=== PATIENT | male | born 1980 | race Caucasian/White ===

== ENCOUNTER 2022-10-19 07:31 | Inpatient (IN) | payer OTHER ==
[~2022-10-19] VITALS: Ht 162.6 cm; Wt 74.8 kg
[2022-10-19] MEDS ORDERED: BACITRACIN OINTMENT 30GM TUBE As Ordered ONE (07:57)
[2022-10-19] MEDS ORDERED: propofoL 200 MG/20 ML VIAL As Ordered ONE (08:02)
[2022-10-19] MEDS ORDERED: ONDANSETRON 4MG 2ML VIAL As Ordered ONE (08:02)
[2022-10-19] MEDS ORDERED: MIDAZOLAM INJ 2MG/2ML VIAL As Ordered ONE (08:02)
[2022-10-19] MEDS ORDERED: fentaNYL 100 MCG/2 ML INJECTION As Ordered ONE (08:02)
[2022-10-19] MEDS ORDERED: ceFAZolin 2 GM/D5W 50 ML IV BAG As Ordered ONE (08:15)
[2022-10-19] MEDS ORDERED: ceFAZolin SOD 2 GM in IV 1 EA IV ONE (08:20)
[2022-10-19] MEDS ORDERED: VANCOMYCIN 1000MG/20ML VIAL As Ordered ONE (08:57)
[2022-10-19] MEDS ORDERED: ACETAMINOPHEN 1000MG 100ML IV BAG As Ordered ONE (09:06)
[2022-10-19] MEDS ORDERED: KETOROLAC 60MG 2ML VIAL As Ordered ONE (09:33)
[2022-10-19] MEDS ORDERED: fentaNYL 100 MCG/2 ML INJECTION IV PRN (09:35)
[2022-10-19] MEDS ORDERED: LR 1,000 ML IV SCH (09:35)
[2022-10-19] MEDS ORDERED: ONDANSETRON 4MG 2ML VIAL IV PRN (09:35)
[2022-10-19] MEDS ORDERED: oxyCODONE 5MG TAB PO PRN (09:50)
[2022-10-19] MEDS ORDERED: MORPHINE 4 MG/ML 1ML VIAL IV PRN (09:50)
[2022-10-19] MEDS ORDERED: VANCOMYCIN HCL 1,000 MG, VIAL MATE ADAPTER 1 EACH in D5W 250 ML IV SCH (09:50)
[2022-10-19] MEDS ORDERED: ACETAMINOPHEN TAB 650MG DOSE (2X325MG) PO PRN (09:50)
[2022-10-19] MEDS: HYDROMORPHONE HCL 0.5 MG/ 0.5 ML SYRINGE IV PRN ×6 (09:56→10:47)
[2022-10-19] MEDS: oxyCODONE 5MG TAB PO PRN ×2 (10:04→10:46)
[2022-10-19 11:02] LABS: HEMATOCRIT 39.8 % (42.0-52.0); HEMOGLOBIN 13.4 g/dl (13.5-17.5); MEAN CORPUSCULAR HEMOGLOBIN 31.2 pg (27.0-33.0); MEAN CORPUSCULAR HGB CONC 33.7 g/dl (32.0-36.5); MEAN CORPUSCULAR VOLUME 92.8 fl (80.0-96.0); PLATELET COUNT, AUTOMATED 201 10^3/uL (150-450); RED BLOOD COUNT 4.29 10^6/uL (4.30-6.10); WHITE BLOOD COUNT 7.4 10^3/uL (4.0-10.0)
[2022-10-19 11:19] LABS: C REACTIVE PROTEIN QUANTITATIV < 0.40 MG/DL (<1.0)
[2022-10-19 11:20] LABS: BLOOD UREA NITROGEN 13 MG/DL (9-23); CALCIUM LEVEL 8.2 MG/DL (8.5-10.1); CARBON DIOXIDE LEVEL 29 MMOL/L (20-31); CHLORIDE LEVEL 108 MMOL/L (98-107); CREATININE FOR GFR 0.74 MG/DL (0.70-1.30); GLOMERULAR FILTRATION RATE > 60.0 (>60); GLUCOSE, FASTING 96 MG/DL (60-100); POTASSIUM SERUM 4.6 MMOL/L (3.5-5.1); SODIUM LEVEL 142 MMOL/L (136-145)
[2022-10-19] MEDS ORDERED: VANCOMYCIN HCL 750 MG, VIAL MATE ADAPTER 1 EACH in D5W 250 ML IV ONE ×2 (12:00→13:00)
[2022-10-19 12:37] VITALS: BP 113/63; TEMP 97.9; O2SAT 97
[2022-10-19 13:45] VITALS: BP 133/69; TEMP 97.7; O2SAT 96
[2022-10-19 14:45] VITALS: BP 136/70; TEMP 97.5; O2SAT 98
[2022-10-19 18:45] VITALS: BP 109/61; TEMP 98.1; O2SAT 98
[2022-10-19] MEDS: VANCOMYCIN HCL 750 MG, VIAL MATE ADAPTER 1 EACH in D5W 250 ML IV SCH (20:19)
[2022-10-19 22:08] VITALS: BP 125/60; TEMP 98.4; O2SAT 97
[2022-10-20 02:16] VITALS: BP 102/48; TEMP 98.6; O2SAT 93
[2022-10-20] MEDS: VANCOMYCIN HCL 750 MG, VIAL MATE ADAPTER 1 EACH in D5W 250 ML IV SCH ×3 (04:41→19:33)
[2022-10-20 06:34] LABS: BASO % 0.3 % (0.0-1.0); EOS # 0.1 10^3/uL (0.0-0.5); HEMATOCRIT 40.6 % (42.0-52.0); HEMOGLOBIN 13.9 g/dl (13.5-17.5); LYMPH # 2.1 10^3/uL (1.5-5.0); LYMPH % 18.6 % (24.0-44.0); MEAN CORPUSCULAR HEMOGLOBIN 31.5 pg (27.0-33.0); MEAN CORPUSCULAR HGB CONC 34.2 g/dl (32.0-36.5); MEAN CORPUSCULAR VOLUME 92.1 fl (80.0-96.0); MONO # 0.8 10^3/uL (0.0-0.8); MONO % 6.6 % (2.0-8.0); NEUTROPHILS # 8.4 10^3/uL (1.5-8.5); NEUTROPHILS % 73.2 % (36.0-66.0); PLATELET COUNT, AUTOMATED 217 10^3/uL (150-450); RED BLOOD COUNT 4.41 10^6/uL (4.30-6.10); WHITE BLOOD COUNT 11.4 10^3/uL (4.0-10.0)
[2022-10-20 07:02] LABS: C REACTIVE PROTEIN QUANTITATIV < 0.40 MG/DL (<1.0)
[2022-10-20 07:04] LABS: BLOOD UREA NITROGEN 10 MG/DL (9-23); CALCIUM LEVEL 9.1 MG/DL (8.5-10.1); CARBON DIOXIDE LEVEL 26 MMOL/L (20-31); CHLORIDE LEVEL 107 MMOL/L (98-107); CREATININE FOR GFR 0.71 MG/DL (0.70-1.30); GLOMERULAR FILTRATION RATE > 60.0 (>60); GLUCOSE, FASTING 120 MG/DL (60-100); POTASSIUM SERUM 3.7 MMOL/L (3.5-5.1); SODIUM LEVEL 139 MMOL/L (136-145)
[2022-10-20] MEDS ORDERED: MED REC IN PROGRESS XX SCH (08:20)
[2022-10-20] MEDS ORDERED: HOME MED LIST COMPLETE! XX SCH (09:40)
[2022-10-20 10:00] VITALS: BP 121/51; TEMP 98.8; O2SAT 96
[2022-10-20] MEDS: IBUPROFEN 600MG TAB PO PRN (12:13)
[2022-10-20 14:00] VITALS: BP 103/53; TEMP 98.1; O2SAT 98
[2022-10-20] MEDS ORDERED: LIDOCAINE 1% MDV 20ML VIAL As Ordered ONE (15:37)
[2022-10-20 16:22] VITALS: BP 154/61; TEMP 98.1; O2SAT 96
[2022-10-20] MEDS: SODIUM CHLORIDE 0.9% INJ 10 ML SYR IV SCH (17:46)
[2022-10-20] MEDS ORDERED: SODIUM CHLORIDE 0.9% INJ 10 ML SYR IV PRN (18:00)
[2022-10-20 21:08] VITALS: BP 168/75; TEMP 98.2; O2SAT 97
[2022-10-20] MEDS: ERTAPENEM SODIUM 1 GM in NS MINI-BAG PLUS 50 ML IV SCH (21:51)
[2022-10-21] MEDS: VANCOMYCIN HCL 750 MG, VIAL MATE ADAPTER 1 EACH in D5W 250 ML IV SCH (04:36)
[2022-10-21] MEDS: IBUPROFEN 600MG TAB PO PRN (04:41)
[2022-10-21] MEDS: SODIUM CHLORIDE 0.9% INJ 10 ML SYR IV SCH ×2 (06:06→15:58)
[2022-10-21 06:09] VITALS: BP 125/59; TEMP 98.1; O2SAT 98
[2022-10-21 06:28] LABS: BASO # 0.1 10^3/uL (0.0-0.2); BASO % 0.9 % (0.0-1.0); EOS # 0.2 10^3/uL (0.0-0.5); EOS % 3.1 % (0.0-3.0); HEMATOCRIT 39.5 % (42.0-52.0); HEMOGLOBIN 13.6 g/dl (13.5-17.5); LYMPH # 2.8 10^3/uL (1.5-5.0); LYMPH % 41.8 % (24.0-44.0); MEAN CORPUSCULAR HEMOGLOBIN 31.8 pg (27.0-33.0); MEAN CORPUSCULAR HGB CONC 34.4 g/dl (32.0-36.5); MEAN CORPUSCULAR VOLUME 92.3 fl (80.0-96.0); MONO # 0.6 10^3/uL (0.0-0.8); MONO % 9.4 % (2.0-8.0); NEUTROPHILS % 44.4 % (36.0-66.0); PLATELET COUNT, AUTOMATED 174 10^3/uL (150-450); RED BLOOD COUNT 4.28 10^6/uL (4.30-6.10); WHITE BLOOD COUNT 6.8 10^3/uL (4.0-10.0)
[2022-10-21 06:45] LABS: BLOOD UREA NITROGEN 13 MG/DL (9-23); CALCIUM LEVEL 8.2 MG/DL (8.5-10.1); CARBON DIOXIDE LEVEL 27 MMOL/L (20-31); CHLORIDE LEVEL 109 MMOL/L (98-107); CREATININE FOR GFR 0.64 MG/DL (0.70-1.30); GLOMERULAR FILTRATION RATE > 60.0 (>60); GLUCOSE, FASTING 107 MG/DL (60-100); POTASSIUM SERUM 3.7 MMOL/L (3.5-5.1); SODIUM LEVEL 141 MMOL/L (136-145)
[2022-10-21 06:46] LABS: C REACTIVE PROTEIN QUANTITATIV < 0.40 MG/DL (<1.0)
[2022-10-21 14:12] VITALS: BP 153/71; TEMP 98.2; O2SAT 97
[2022-10-21] MEDS: ERTAPENEM SODIUM 1 GM in NS MINI-BAG PLUS 50 ML IV SCH (15:57)
[2022-10-21] MEDS ORDERED: IBUP-1022 PO (16:15)
== END 2022-10-21 17:00 | disposition home health service (06) | DRG 316 ==
LOC: M SDC 07:31 → M RR INP 10:58 → OBSVTOIN 10:58 → M MS5PR 12:35
PROVIDERS: ADMIT Internal Medicine Nephrology; ATTEND Orthopaedic Surgery Hand Surgery
PROC: 0PBP0ZZ Excision of Right Metacarpal, Open Approach (ICD-10-PCS; 2022-10-19)
PROC: 02HV33Z Insertion of Infusion Device into Superior Vena Cava, Percutaneous Approach (ICD-10-PCS; principal; 2022-10-20 16:00)
DX: M86.241 Subacute osteomyelitis, right hand (principal); U07.1 COVID-19

== ENCOUNTER → 2022-10-26 | Outpatient (CLI) | payer OTHER ==
[~2022-10-26] MED LIST: IBUP-1022 PO
== END ==
LOC: M SOG 09:25
PROVIDERS: ATTEND Physician Assistant
DX: L03.011 Cellulitis of right finger (principal)

== ENCOUNTER → 2023-01-12 | Outpatient (CLI) | payer OTHER | LOC: M SOG 08:59 | PROVIDERS: ATTEND Physician Assistant | DX: L03.011 Cellulitis of right finger (principal) ==

== ENCOUNTER 2025-02-19 06:55 | Inpatient (IN) | payer OTHER ==
[~2025-02-19] VITALS: Ht 165.1 cm; Wt 75.0 kg
[~2025-02-19 06:55] MED LIST changes: -IBUP-1022 PO; +IBUP600T42 PO
[2025-02-19 07:36] LABS: PLATELET COUNT, AUTOMATED 239 10^3/uL (150-450)
[2025-02-19 08:08] LABS: AMPHETAMINES LEVEL URINE NEGATIVE (NEGATIVE); BARBITURATES URINE NEGATIVE (NEGATIVE); BENZODIAZEPINES URINE NEGATIVE (NEGATIVE); CANNABINOIDS URINE NEGATIVE (NEGATIVE); COCAINE METABOLITE URINE NEGATIVE (NEGATIVE); METHADONE URINE NEGATIVE (NEGATIVE); OPIATES URINE NEGATIVE (NEGATIVE); PHENCYCLIDINE URINE NEGATIVE (NEGATIVE)
[2025-02-19 08:09] LABS: ETHYL ALCOHOL (ETHANOL) 0.157 % (0.000-0.010)
[2025-02-19 08:10] LABS: ALT/SGPT 25 U/L (7.0-40); AST/SGOT 23 U/L (<34); CALCIUM LEVEL 9.1 MG/DL (8.5-10.1); CARBON DIOXIDE LEVEL 27 MMOL/L (20-31); CHLORIDE LEVEL 105 MMOL/L (98-107); CREATININE FOR GFR 0.72 MG/DL (0.70-1.30); GLOMERULAR FILTRATION RATE > 90.0 (>60); POTASSIUM SERUM 3.8 MMOL/L (3.5-5.1); SALICYLATE LEVEL < 3.0 MG/DL (<30); SODIUM LEVEL 144 MMOL/L (136-145)
[2025-02-19] MEDS ORDERED: ACETAMINOPHEN 325 MG TAB PO PRN (11:40)
[2025-02-19] MEDS ORDERED: MAALOX 30 ML SUSP *UDC PO PRN (11:40)
[2025-02-19] MEDS ORDERED: traZODone 50 MG TAB PO PRN (11:40)
[2025-02-19] MEDS ORDERED: OLANZapine 5 MG TAB PO PRN (11:40)
[2025-02-19] MEDS ORDERED: LORazepam 1 MG TAB PO PRN (11:40)
[2025-02-19] MEDS ORDERED: HOME MED LIST COMPLETE! XX SCH (11:40)
[2025-02-19] MEDS ORDERED: HALOPERIDOL 5 MG TAB PO PRN (11:40)
[2025-02-19] MEDS ORDERED: MOM 30 ML SUSPENSION UDC PO PRN (11:40)
[2025-02-19 13:59] VITALS: BP 126/64; TEMP 98.2; O2SAT 98
[2025-02-19] MEDS: IBUPROFEN 400 MG TAB PO PRN (14:53)
[2025-02-19] MEDS: NICOTINE 14 MG/24 HR TRANSDERMAL TD SCH (14:55)
[2025-02-19 21:00] VITALS: BP 126/64; TEMP 98.2; O2SAT 98
[2025-02-20 06:53] VITALS: BP 126/63; TEMP 97.2; O2SAT 100
== END 2025-02-20 15:52 | disposition home or self-care (01) | DRG 775 ==
LOC: M ED 06:55 → M ED INP 11:39 → M PSY 13:46
PROVIDERS: ADMIT Internal Medicine; ATTEND Internal Medicine
DX: F10.94 Alcohol use, unspecified with alcohol-induced mood disorder (principal); F41.9 Anxiety disorder, unspecified; F17.200 Nicotine dependence, unspecified, uncomplicated; Z59.89 Other problems related to housing and economic circumstances; F90.9 Attention-deficit hyperactivity disorder, unspecified type